=== PATIENT | male | born 1955 | race American Indian/Alaskan Native ===

== ENCOUNTER 2019-02-25 09:49 | Day surgery (SDC) | payer MEDICARE ==
[~2019-02-25 09:49] MED LIST: NACL 0.9% 1000 ML 1,000 ML IV SCH
[2019-02-25] MEDS ORDERED: D50W (25GM) Syringe IV ONE (11:07)
--- NOTE | 2019-02-25 12:29 | Anesthesia Day of Surgery ---
Anesthesia Day of Surgery - Day of Surgery Patient Examined: Yes Patient H&P Reviewed: Yes Patient is NPO: Yes
--- NOTE | 2019-02-25 12:32 | Anesthesia Consultation ---
Anesthesia Consult and Med Hx Date of service: 02/25/19 - Airway Anesthetic Teeth Evaluation: Good ROM Head & Neck: Adequate Mental/Hyoid Distance: Adequate Mallampati Class: Class III Intubation Access Assessment: Possibly Difficult - Pre-Operative Health Status ASA Pre-Surgery Classification: ASA3 Proposed Anesthetic Plan: MAC - Pulmonary Hx Pneumonia: Yes (viral) - Cardiovascular System Hx Hypertension: Yes - Endocrine Hx Renal Disease: Yes (MWF) Hx End Stage Renal Disease: Yes Hx Non-Insulin Dependent Diabetes: Yes (neuropathy)
[2019-02-25] MEDS ORDERED: DIPRIVAN 10 MG/ML IV ONE ×2 (13:21→13:22)
[2019-02-25] MEDS ORDERED: XYLOCAINE 2% UROJET ONE (13:56)
[2019-02-25] MEDS ORDERED: XYLOCAINE 2% UROJET UR ONE (14:00)
--- NOTE | 2019-02-25 14:10 | Operative Report ---
Operative Report Operative Report: Date of procedure: 02/25/2019 Procedure: Colonoscopy with hot biopsy polypectomy. Hemorrhoidal Band Ligation. Attending physician: Ruy Andersen MD Casualty Claim Adjuster: Ruy Andersen MD Indication: Patient is a 63-year-old male who presents for colonoscopy. He has a history of rectal bleeding and rectal pain. A colonoscopy serves to evaluate patients symptoms and also for directing treatment based on the findings. Consent: Informed consent was obtained after advising the patient and family (son)regarding nature of this procedure, its indications, potential benefits as well as possible complications including but not limited to bleeding perforation and adverse reaction to medication, infection, fecal incontinence, anorectal pain as well as other cardiopulmonary complications. An informed written and verbal consent was then obtained after due opportunity was provided for questions and answers. Monitoring: Patient was monitored continuously with pulse oximetry and electrocardiographic recordings as well as blood pressure recordings. Vital signs remained stable throughout this procedure with no untoward events. Preoperative assessment: Patient was assessed immediately prior to this procedure for capacity to tolerate monitored anesthesia care and moderate sedation as well as general anesthesia. Patient's ASA classification is 2, Mallampati class is 2, Hyomental distance is 3. Instrument: WriteOninon video colonoscope. Multiple band ligator: Speedband SuperView Super 7 (ABODO) Medications: Propofol given intravenously in divided doses. For details please refer to anesthesia records. Description of procedure: Patient was placed in the left lateral decubitus position after achieving sedation, a digital rectal examination was performed following which the colonoscope was introduced into the anal verge and advanced to the cecum which was identified by the cecal valve, the appendiceal orifice, as well as by the cecal strap and direct transillumination. The colonoscope was subsequently withdrawn with careful inspection of all mucosal surfaces. Patient tolerated this procedure well and was subsequently taken to the recovery room. The following findings were noted. Findings: Patient had a 6 mm flat polyp in the transverse colon which was removed by hot biopsy polypectomy. The rest of the colon to the cecum was normal, except for areas of retained liquid stool. The cecum had substantial retained stool. On the retroflex view at the anal verge, patient had prominent large friable internal hemorrhoids. After completing the colonoscopic examination, the WILEXn video endoscope was preloaded with the multiple band ligator. It was then reintroduced into the rectum after using lidocaine gel to numb the rectum. Following this, in a retroflexed view, multiple bands were applied over the internal hemorrhoids. In all, all 3 bands were applied due to size of internal hemorrhoids. All bands were applied above the dentate line. Patient tolerated the procedure well with no untoward events. Impression: Retained stool Transverse colon polyp status post hot biopsy polypectomy. Prominent friable Internal hemorrhoids, status post successful hemorrhoidal band ligation. Plan: Follow pathology report and repeat colonoscopy in 5 years if polyps are adenomatous. Daily sitz baths. High-fiber diet. Patient to apply lidocaine ointment 5% per rectum every 6 hours as needed. Anusol HC suppositories per rectum every night. Patient to use stool softeners as needed. Miralax 17 g in 8 ounce glass of water has been prescribed. Tramadol 50 mg every 6 hours as needed for pain. Patient is scheduled for further outpatient follow-up. Patients further instructed that if he developes persistent bleeding and or fevers to notify the office immediately.
--- NOTE | 2019-02-25 14:11 | Discharge Summary ---
Short Stay Discharge Plan Activity: advance as tolerated Weight Bearing Status: Weight Bear as Tolerated Diet: regular Follow up with: WILFREDO POPE MD [Primary Care Provider] - 7 Days
[2019-02-25 14:44] VITALS: BP 156/87
== END 2019-02-25 09:50 | disposition home or self-care (01) ==
LOC: GIO 09:49
PROVIDERS: ATTEND Internal Medicine Gastroenterology
DX: K63.5 Polyp of colon (principal); K64.8 Other hemorrhoids; K62.89 Other specified diseases of anus and rectum; I12.0 Hypertensive chronic kidney disease with stage 5 chronic kidney disease or end stage renal disease; E11.22 Type 2 diabetes mellitus with diabetic chronic kidney disease; N18.6 End stage renal disease; Z99.2 Dependence on renal dialysis; Z79.899 Other long term (current) drug therapy; Z98.890 Other specified postprocedural states
CPT/HCPCS: 45384; 45398; 82962; 88305; J2704; J7030; 96374

== ENCOUNTER 2019-03-07 21:25 | Inpatient (IN) | payer MEDICARE ==
--- NOTE | 2019-03-07 22:54 | Emergency Department Report ---
Chief Complaint: Chest Pain Stated Complaint: CHEST PAIN/CHILLS Time Seen by Provider: 03/07/19 22:51 - HPI History of Present Illness: pt presents SOB, sub fever, and generalized weakness that began yesterday denies cough substernal CP that began tonight at 8 PM on dialysis goes M/W/F, went on friday PMHx HTN non smoker non drinker no drug use - Exam Vital Signs: Vital Signs 03/07/19 21:43 Temperature 98.2 F Pulse Rate 89 Respiratory 18 Rate Blood Pressure 106/73 O2 Sat by Pulse 98 Oximetry MSE screening note: Focused history and physical exam performed. Due to findings the following was ordered: CP protocol ED Disposition for MSE Condition: Stable
[2019-03-07 23:32] LABS: Basophils % (Auto) 0.6 % (0.0-1.8); Eosinophils # (Auto) 0.1 K/mm3 (0.0-0.4); Eosinophils % (Auto) 1.9 % (0.0-4.3); Hematocrit 38.1 % (35.5-45.6); Hemoglobin 12.5 gm/dl (11.8-15.2); INR 1.1 (0.87-1.13); Lymphocytes # (Auto) 0.3 K/mm3 (1.2-5.4); Lymphocytes % (Auto) 4.7 % (13.4-35.0); Mean Corpuscular HGB Conc 33 % (32-34); Mean Corpuscular Volume 97 fl (84-94); Monocytes # (Auto) 0.3 K/mm3 (0.0-0.8); Monocytes % (Auto) 5.7 % (0.0-7.3); Platelet Count 175 K/mm3 (140-440); Red Blood Count 3.94 M/mm3 (3.65-5.03); Red Cell Distribution Width 16.7 % (13.2-15.2)
[2019-03-07 23:33] LABS: Partial Thromboplastin Time 40.7 Sec. (24.2-36.6)
[2019-03-07 23:48] LABS: Albumin 4.1 g/dL (3.9-5); Calcium 8.7 mg/dL (8.4-10.2)
[2019-03-08 00:07] LABS: Chol/HDL Ratio 2.59 %
[2019-03-08] MEDS ORDERED: CALCIUM GLUCONATE 1,000 MG in NACL 0.9% 100 ML IV ONE (00:35)
[2019-03-08] MEDS ORDERED: D50W (25GM) Syringe IV ONE ×3 (00:35→03:55)
[2019-03-08] MEDS ORDERED: HumuLIN R IV ONE (00:35)
[2019-03-08] MEDS ORDERED: KIONEX PO ONE (00:47)
--- NOTE | 2019-03-08 00:47 | Emergency Department Report ---
HPI - General Chief Complaint: Chest Pain Time Seen by Provider: 03/07/19 22:51 - HPI HPI: Room 6 The patient is a 63-year-old male presenting with a chief complaint of chest pain. The patient states this evening at approximately 20:00 began to feel weak and cold. The patient states he developed substernal chest pain associated with shortness of breath and diaphoresis. Patient denies nausea or vomiting. The patient has a history of end-stage renal disease and was last dialyzed 2 days ago. Patient states he had a stress test 2 years ago and he believes a normal cardiac catheterization approximately 4 years ago. Location: [See above] Duration: [See above] Quality: [See above] Severity: [See above] Modifying factors: [see above] Context: [see above] Mode of transportation: [not driving] ED Past Medical Hx - Past Medical History Previous Medical History?: Yes Hx Hypertension: Yes Hx Diabetes: Yes (diet controlled) Hx Renal Disease: Yes (MWF) Additional medical history: neuropathy - Surgical History Past Surgical History?: No Additional Surgical History: Vas-Cath left groin, colonic polyp removal. Right kidney biopsy - Social History Smoking Status: Never Smoker Substance Use Type: None (denies illicit drug use) - Medications Home Medications: Home Medications Medication Instructions Recorded Confirmed Last Taken Type Brimonidine Tartrate 0.2% 1 drop OU DAILY 02/24/19 02/25/19 02/24/19 History Doxazosin Mesylate 8 mg PO DAILY 02/24/19 02/25/19 02/24/19 History Hemorrhoidal Cream 1 applicatio RC BID PRN 02/24/19 02/25/19 02/23/19 History Latanoprost 0.005% 1 drop OU DAILY 02/24/19 02/25/19 02/24/19 History Loperamide 2 mg PO Q6H PRN 02/24/19 02/25/19 Unknown History Methocarbamol 500 mg PO DAILY 02/24/19 02/25/19 02/24/19 History Nephro-Manny Rx Tablet 60 - 300 mg PO DAILY 02/24/19 02/25/19 02/23/19 History Oxycodone HCl 15 mg PO PRN PRN 02/24/19 02/25/19 02/23/19 History Renvela 800 mg PO DAILY 05/11/1402/25/19 02/23/19 History ED Review of Systems ROS: Stated complaint: CHEST PAIN/CHILLS Other details as noted in HPI Constitutional: diaphoresis Eyes: denies: eye pain ENT: denies: throat pain Respiratory: shortness of breath Cardiovascular: chest pain Endocrine: no symptoms reported Gastrointestinal: denies: nausea, vomiting Genitourinary: denies: testicular pain Musculoskeletal: denies: back pain Neurological: denies: headache Physical Exam - Physical Exam Vital Signs: Vital Signs 03/07/19 21:43 Temperature 98.2 F Pulse Rate 89 Respiratory 18 Rate Blood Pressure 106/73 O2 Sat by Pulse 98 Oximetry Physical Exam: GENERAL: The patient is well-developed well-nourished male lying on stretcher not appearing to be in acute distress. [] HEENT: Normocephalic. Atraumatic. Extraocular motions are intact. Patient has moist mucous membranes. NECK: Supple. Trachea midline CHEST/LUNGS: Clear to auscultation. There is no respiratory distress noted. HEART/CARDIOVASCULAR: Regular. There is no tachycardia. There is no gallop rub or murmur. ABDOMEN: Abdomen is soft, nontender. Patient has normal bowel sounds. There is no abdominal distention. SKIN: There is no rash. There is no diaphoresis. NEURO: The patient is awake, alert, and oriented. The patient is cooperative. The patient has normal speech MUSCULOSKELETAL: There is no evidence of acute injury. ED Course Vital Signs 03/07/19 21:43 Temperature 98.2 F Pulse Rate 89 Respiratory 18 Rate Blood Pressure 106/73 O2 Sat by Pulse 98 Oximetry - Consultations Consultation #1: 03/08/19 00:[address] Cadena- Says patient should also get albuterol and Kayexalate 60 g and have potassium repeated in 4 hours. If Potassium still greater than 5.8 call him back tonight. Consultation #2: 03/07/19 21:49 EKG sent to and discussed with electric truck operator Dr. Eros Burgos- no STEMI ED Medical Decision Making - Lab Data Result diagrams: 03/07/19 23:05 03/07/19 23:05 Laboratory Tests 03/07/19 03/07/19 03/07/19 23:05 23:05 23:05 WBC 5.9 RBC 3.94 Hgb 12.5 Hct 38.1 MCV 97 H MCH 32 MCHC 33 RDW 16.7 H Plt Count 175 Lymph % (Auto) 4.7 L [place] % (Auto) 5.7 Eos % (Auto) 1.9 Baso % (Auto) 0.6 Lymph # 0.3 L [place] # 0.3 Eos # 0.1 Baso # 0.0 Seg Neutrophils % 87.1 H Seg Neutrophils # 5.2 PT 14.9 INR 1.10 APTT 40.7 H Sodium 136 L Potassium 6.0 H Chloride 97.1 L Carbon Dioxide 22 Anion Gap 23 BUN 56 H Creatinine 12.3 H Estimated GFR 5 BUN/Creatinine Ratio 5 Glucose 64 L Calcium 8.7 Phosphorus 3.40 Magnesium 2.40 H Total Bilirubin 0.40 AST 18 ALT 15 Alkaline Phosphatase 64 Troponin T 0.071 H Total Protein 7.2 Albumin 4.1 Albumin/Globulin Ratio 1.3 Triglycerides 77 Cholesterol 140 LDL Cholesterol Direct 78 HDL Cholesterol 54 Cholesterol/HDL Ratio 2.59 - EKG Data -: EKG Interpreted by Me EKG shows normal: sinus rhythm Rate: normal - EKG Data When compared to previous EKG there are: previous EKG unavailable Interpretation: nonspecific ST-T wave maureen - Radiology Data Radiology results: report reviewed (chest x-ray), image reviewed (chest x-ray) interpreted by me: Chest x-ray-no focal infiltrates, [place] [address] Cat Scan Report Signed Patient: RON DIAS MR# : [id number] : 01/28/1979 Acct:[id number] Age/Sex: 40 / F ADM Date: 03/07/19 Loc: ED Attending Dr: Ordering Physician: RAJNI BYRNES MD Date of Service: 03/07/19 Procedure(s): CT abdomen pelvis w con Accession Number(s): [id number] cc: RAJNI BYRNES MD PROCEDURE: CT ABDOMEN PELVIS W CON TECHNIQUE: Computerized axial tomography of the abdomen and pelvis was performed after the IV injection of iodinated nonionic contrast. HISTORY: lower abdominal pain COMPARISONS: None . FINDINGS: Visualized lower thorax: No significant abnormality. Liver: Normal size and attenuation. Spleen: Normal size and attenuation. Gallbladder and biliary system: Multiple stones identified within the gallbladder lumen. No dilatation of the biliary ductal system. Pancreas: Normal. Adrenals: Normal. Kidneys: Normal. GI tract: No obstruction. No ileus or enteritis. The cecum, appendix and colon are normal. . Lymph nodes and mesentery: Normal. Vasculature: Normal.. Bladder: Normal. Reproductive organs: Normal. Peritoneum: No free fluid. Musculoskeletal structures: No significant abnormality. Other: None . IMPRESSION: There is no evidence of intestinal or urinary tract obstruction. No ileus or enteritis. The appendix is normal. Cholelithiasis. No dilatation of the biliary ductal system. . This document is electronically signed by Izabela Cassidy DO., Mar 08 2019 12:15:22 AM ET Transcribed By: [facility] Dictated By: IZABELA CASSIDY MD Electronically Authenticated By: IZABELA CASSIDY MD Signed Date/Time: 03/08/1916 DD/ TD/TT: 03/08/196 - Differential Diagnosis ACS, pericarditis, GERD, hyperkalemia Critical care attestation.: If time is entered above; I have spent that time in minutes in the direct care of this critically ill patient, excluding procedure time. ED Disposition Clinical Impression: Chest pain, Hyperkalemia, End stage renal disease Disposition: OP ADMIT IP TO THIS HOSP Is pt being admited?: Yes Does the pt Need Aspirin: Yes Condition: Fair Instructions: Chest Pain (ED) Referrals: MIN CAZARES MD [Primary Care Provider] - 3-5 Days Time of Disposition: 01:01 (hospitalist notified (Dr Diamond))
[2019-03-08] MEDS ORDERED: PROVENTIL IH ONE (00:48)
[2019-03-08] MEDS ORDERED: NITRO-BID 2% TP ONE (00:48)
[2019-03-08] MEDS ORDERED: ASPIRIN PO ONE (00:48)
--- NOTE | 2019-03-08 00:49 | Event Note ---
Case d/w Dr Flores , mild hyperkalemia no EKG cahnges per E MD PER MD no resp distress No emergent indications for HD Had HD friday Suggested D 50 insulin Calcium 1 gram IV Bicarb 2 amp Albuterol 10 mg nebulized Kayexalate 60 gram po Repeat potassium in 4 hours if over 5.8 to call me
--- NOTE | 2019-03-08 01:48 | XRay Report ---
PROCEDURE: XR CHEST 1V AP TECHNIQUE: Chest radiograph single view. HISTORY: chest pain COMPARISONS: None . FINDINGS: Heart: Normal. Mediastinum/Vessels: Normal. Lungs/Pleural space: Normal. Bony thorax: No acute osseous abnormality. Life support devices: None. IMPRESSION: No acute cardiopulmonary abnormality. This document is electronically signed by Izabela Cassidy DO., Mar 08 2019 01:46:55 AM ET
[2019-03-08] MEDS ORDERED: MORPHINE IV PRN (02:00)
[2019-03-08] MEDS ORDERED: NITROSTAT SL PRN (02:00)
[2019-03-08] MEDS ORDERED: TYLENOL PO PRN (02:01)
[2019-03-08] MEDS ORDERED: ZOFRAN IV PRN (02:01)
--- NOTE | 2019-03-08 04:46 | History and Physical Report ---
CHIEF COMPLAINT: Chest pain. HISTORY OF PRESENTING ILLNESS: The patient is a 63-year-old male who started having substernal chest pain yesterday evening. The patient said initially he started feeling weak and cold and then developed substernal chest pain which was associated with shortness of breath and diaphoresis. There was no history of nausea or vomiting and also the patient did not have any radiation of the pain and said that the pain is not affected by movement or breathing and presented for evaluation. PAST MEDICAL HISTORY: Pertinent for hypertension; diabetes mellitus, controlled with diet; end-stage renal disease, on dialysis on Mondays, Wednesdays, and Fridays; and diabetic neuropathy. PAST SURGICAL HISTORY: Pertinent for vascath placement in the left groin, colonic polyp removal, right kidney biopsy. FAMILY HISTORY: Noncontributory. SOCIAL HISTORY: The patient does not smoke, does not drink alcohol, and does not use illicit drugs. MEDICATIONS: The patient is on brimonidine tartrate 0.2% one drop to the right eye daily, doxazosin mesylate 8 mg by mouth daily, hemorrhoidal cream application rectally twice daily, latanoprost 0.005% one drop to right eye daily, loperamide 2 mg by mouth every 6 hours, methocarbamol 500 mg by mouth daily, Nephro-Manny tablet ____ by mouth daily, oxycodone 15 mg by mouth by needed for pain, Renvela 800 mg by mouth daily. ALLERGIES: There are no known drug allergies. REVIEW OF SYSTEMS: CONSTITUTIONAL: There is no fever, no chills. Diaphoresis is present. HEENT: There is no headache or sore throat. CARDIOVASCULAR SYSTEM: Chest pain is present. No orthopnea. RESPIRATORY SYSTEM: Shortness of breath is present. No cough. GASTROINTESTINAL SYSTEM: There is no nausea, no vomiting. No abdominal pain, diarrhea, or constipation. NEUROLOGICAL SYSTEM: There is no numbness, no dizziness, no altered mental status. MUSCULOSKELETAL SYSTEM: There is no joint pain or swelling. DERMATOLOGICAL SYSTEM: There is no skin rash or itching. GENITOURINARY SYSTEM: There is no dysuria, hematuria, or flank pain. Rest of system review is normal. PHYSICAL EXAMINATION: GENERAL: At the time of exam, the patient was found to be alert, oriented x 3, and not in acute distress. VITAL SIGNS: Showed temperature of 98.2 degrees Fahrenheit, pulse of 89, respirations 18, blood pressure 106/73, O2 sat of 98% on room air. HEENT: Pupils to be equal, round, reactive to light and accommodating. Extraocular muscles are intact. NECK: Supple with no JVD or carotid bruit. CARDIOVASCULAR SYSTEM: Showed normal first and second heart sounds with no gallops or murmur. RESPIRATORY SYSTEM: Showed good air entry on both sides of the lungs with no abnormal breath sounds. GASTROINTESTINAL SYSTEM: Showed abdomen to be full, soft, nontender with no organomegaly or rigidity. NEUROLOGIC: Showed no focal deficit. MUSCULOSKELETAL SYSTEM: Showed no joint swelling or tenderness. DERMATOLOGICAL SYSTEM: Showed no skin rash. GENITOURINARY SYSTEM: Showing no costovertebral angle tenderness. PERTINENT LABORATORY AND IMAGING STUDIES: The patient had chest x-ray done that came back unremarkable. The patient's lab results show CBC with normal white count, normal hemoglobin, and normal hematocrit with slightly elevated MCV of 97. The patient's CBC differential shows high segmented neutrophil count of 87.1%. Coagulation studies show elevated PTT of 40.7 with normal PT and normal INR. The patient's chemistry showed low sodium of 136 with high potassium level of 6 and low chloride level of 97.1. The patient's BUN is elevated with a value of 56 with high creatinine of 12.3 and low glucose level of 64. The patient's troponin level is high with a value of 0.071. DIAGNOSES: 1. Chest pain. 2. End-stage renal disease, on dialysis. 3. Hyperkalemia. 4. Elevated troponin level. PLAN OF CARE: 1. The patient will be admitted to telemetry as inpatient. 2. The patient will have serial cardiac enzymes involving troponin, total CK and CK-MB check every 6 hours x 2 more levels. 3. The patient will continue Nephrology consult with Dr. Cadena for end-stage renal disease and hyperkalemia. 4. The patient will have Cardiology consult with Dr. Yun because of chest pain and elevated troponin level. 5. The patient will be n.p.o. until seen by the production supply equipment tender. 6. The patient will be on aspirin 325 mg by mouth daily and will be on IV morphine 2 mg every 3 hours as needed for pain. 7. The patient will be on nitro paste half inch to anterior chest wall q.i.d. and will be on sublingual nitroglycerin 0.4 mg every 5 minutes as needed for breakthrough chest pain. 8. The patient will be on IV Zofran 4 mg every 8 hours as needed for nausea and vomiting and will be on Tylenol 650 mg by mouth every 4 hours for fever and headache. 9. The patient will be on oxygen by nasal cannula at 2 liters per minute. JOB# [id number] OCN/NTS
[2019-03-08] MEDS: NITRO-BID 2% TP SCH ×5 (05:57→18:15)
[2019-03-08 06:40] LABS: Creatine Kinase MB 3.4 ng/mL (0.0-4.0)
[2019-03-08 06:42] LABS: Calcium 8.7 mg/dL (8.4-10.2)
--- NOTE | 2019-03-08 08:36 | Progress Note ---
Assessment and Plan Assessment and plan: Patient is a 63 yo man with history of ESRD on hd, hypertension, diet controlled dm2 and neuropathy who presented with chest pains Chest pains: consulted cardiology ESRD: consulted renal Hyperkalemia: needing HD prolonged inpatient services 31 minutes History Interval history: Patient was seen and examined. Follow-up on current diagnosis of chest pains. No overnight events reported to me. Patient denies any shortness breath, nausea/vomiting or severe headaches. Imaging, nursing note, chart, labs and old chart reviewed. Discussed with patient. Hospitalist Physical - Physical exam Narrative exam: Gen: WDWN, NAD, Awake, Alert, Orientated HEENT: NCAT, EOMI, PERRL, OP Clear Neck: supple, no adenopathy, no thyromegaly, no JVD CVS/Heart: RRR, normal S1S2, pulses present bilaterally Chest/Lungs: CTA B, Symmetrical chest expansion, good air entry bilaterally GI/Abdomen: soft, NTND, good bowel sounds, no guarding or rebound /Bladder: no suprapubic tenderness, no CVA or paraspinal tenderness Extermity/Skin: no c/c/e, no obvious rash MSK: FROM x 4 Neuro: CN 2-12 grossly intact, no new focal deficits Psych: calm - Constitutional Vitals: Temp Pulse Resp BP Pulse Ox 98.0 F 104 H 20 186/113 91 03/08/19 08:31 03/08/19 08:31 03/08/19 08:31 03/08/19 08:31 03/08/19 08:31 Results - Labs CBC & Chem 7: 03/07/19 23:05 03/08/19 04:48 Labs: Laboratory Last Values WBC 5.9 K/mm3 (4.5-11.0) 03/07/19 23:05 RBC 3.94 M/mm3 (3.65-5.03) 03/07/19 23:05 Hgb 12.5 gm/dl (11.8-15.2) 03/07/19 23:05 Hct 38.1 % (35.5-45.6) 03/07/19 23:05 MCV 97 fl (84-94) H 03/07/19 23:05 MCH 32 pg (28-32) 03/07/19 23:05 MCHC 33 % (32-34) 03/07/19 23:05 RDW 16.7 % (13.2-15.2) H 03/07/19 23:05 Plt Count 175 K/mm3 (140-440) 03/07/19 23:05 Lymph % (Auto) 4.7 % (13.4-35.0) L 03/07/19 23:05 [place] % (Auto) 5.7 % (0.0-7.3) 03/07/19 23:05 Eos % (Auto) 1.9 % (0.0-4.3) 03/07/19 23:05 Baso % (Auto) 0.6 % (0.0-1.8) 03/07/19 23:05 Lymph # 0.3 K/mm3 (1.2-5.4) L 03/07/19 23:05 [place] # 0.3 K/mm3 (0.0-0.8) 03/07/19 23:05 Eos # 0.1 K/mm3 (0.0-0.4) 03/07/19 23:05 Baso # 0.0 K/mm3 (0.0-0.1) 03/07/19 23:05 Seg Neutrophils % 87.1 % (40.0-70.0) H 03/07/19 23:05 Seg Neutrophils # 5.2 K/mm3 (1.8-7.7) 03/07/19 23:05 PT 14.9 Sec. (12.2-14.9) 03/07/19 23:05 INR 1.10 (0.87-1.13) 03/07/19 23:05 APTT 40.7 Sec. (24.2-36.6) H 03/07/19 23:05 Sodium 137 mmol/L (137-145) 03/08/19 04:48 Potassium 5.2 mmol/L (3.6-5.0) H 03/08/19 04:48 Chloride 96.0 mmol/L (98-107) L 03/08/19 04:48 Carbon Dioxide 22 mmol/L (22-30) 03/08/19 04:48 24 mmol/L 03/08/19 04:48 BUN 58 mg/dL (9-20) H 03/08/19 04:48 12.7 mg/dL (0.8-1.5) H 03/08/19 04:48 Estimated GFR 5 ml/min 03/08/19 04:48 5 % 03/08/19 04:48 Glucose 69 mg/dL (75-100) L 03/08/19 04:48 POC Glucose 71 (70-105) 03/08/19 08:31 Calcium 8.7 mg/dL (8.4-10.2) 03/08/19 04:48 Phosphorus 3.40 mg/dL (2.5-4.5) 03/07/19 23:05 Magnesium 2.40 mg/dL (1.7-2.3) H 03/07/19 23:05 0.40 mg/dL (0.1-1.2) 03/07/19 23:05 AST 18 units/L (5-40) 03/07/19 23:05 ALT 15 units/L (7-56) 03/07/19 23:05 64 units/L (35-129) 03/07/19 23:05 174 units/L (55-170) H 03/08/19 04:48 CK-MB (CK-2) 3.4 ng/mL (0.0-4.0) 03/08/19 04:48 CK-MB (CK-2) Rel Index 1.9 (0-4) 03/08/19 04:48 0.069 ng/mL (0.00-0.029) H 03/08/19 04:48 7.2 g/dL (6.3-8.2) 03/07/19 23:05 4.1 g/dL (3.9-5) 03/07/19 23:05 1.3 % 03/07/19 23:05 Triglycerides 77 mg/dL (2-149) 03/07/19 23:05 Cholesterol 140 mg/dL (50-199) 03/07/19 23:05 78 mg/dL (50-130) 03/07/19 23:05 54 mg/dL (40-59) 03/07/19 23:05 2.59 % 03/07/19 23:05 Active Medications - Current Medications Current Medications: Generic Name Dose Route Start Last Admin Trade Name Carlo PRN Reason Stop Dose Admin Acetaminophen 650 mg 03/08/19 02:01 Tylenol PO Q4H PRN Headache Aspirin 325 mg 03/08/19 10:00 Aspirin PO QDAY [facility] Heparin Sodium (Porcine) 5,000 unit 03/08/19 10:00 Heparin SUB-Q Q12HR [facility] Morphine Sulfate 2 mg 03/08/19 02:00 03/08/19 05:47 Morphine IV 2 mg Q3H PRN Administration Pain, Moderate (4-6) Nitroglycerin 0.5 inch 03/08/19 06:00 03/08/19 05:59 Nitro-Bid 2% TP Not Given QIDNTG [facility] Protocol Nitroglycerin 0.4 mg 03/08/19 02:00 Nitrostat SL .Q5MIN PRN Chest Pain Ondansetron HCl 4 mg 03/08/19 02:01 Zofran IV Q8H PRN Nausea And Vomiting
--- NOTE | 2019-03-08 09:17 | Consultation ---
History of Present Illness - History of Present Illness Thank you for the consultation ! Patient was evaluated today My assessment and plan are as follows; End-stage renal disease: Patient is currently on hemodialysis, and will need to continue with hemodialysis on Friday and Friday, scheduled current dialysis access is a femoral catheter Given his BMI he will need a 4 hour dialysis treatment Patient was adequately counseled and educated about dialysis process Chest pain currently undergoing workup Anemia and end-stage renal disease: Monitor hemoglobin and hematocrit erythropoietin as needed. Workup as required Secondary hyperparathyroidism: Check phosphorus and PTH level periodically, binders as needed Dialysis access: Currently working well Malnutrition risk: High consider high-protein diet dietitian evaluation and follow-up in general 1.5 g protein per KG body weight Fluid restriction: 1200 cc per day not to exceed more than that Adequately counseled and educated about other hospital related issues as well Labs were discussed with patient and simple [place] Patient does appear to have good understanding of all the dialysis related issues Patient was adequately counseled and educated regarding multiple renal related issues. case was also discussed with his review manager Dr. Wilkins All renal related questions were answered and simple [place] pertinent lab studies as well as imaging results were also discussed with patient We will continue to follow and make recommendations from renal standpoint. Thank you for the consultation Author: Jermaine Cadena M.D. [facility] (Formerly [facility])[3] Nephrology, [address] [place] [address] Tel; [phone] Source of information: From patient History of present illness Patient is 63-year-old -Armenian male who is currently established with Dr. Wilkins, for hemodialysis and is currently in Friday schedule. Patient only dialyzes for about 3 hour 45 minutes, he has been admitted here with chest pain and has had mild hyperkalemia last night which was treated medically, patient is currently chest pain-free and is being followed by cardiology He is currently feeling much better denies having any chest pain His access has been working well for dialysis, which is a femoral catheter currently He has no complaints of any cough cold congestion fevers chills nausea vomiting diarrhea Past medical history significant for End-stage renal disease Anemia and incisional disease Hypertension Secondary hyperparathyroidism Diabetes Neuropathy Current allergies None Social history: Reviewed from the chart Family history reviewed from the chart Current medication or medication reviewed Review of systems positive for chest pain Unremarkable for all other systems Cardiac catheterization has had 4 years ago Physical examination Vitals: Reviewed General: No acute distress HEENT: Oral mucosa moist no pallor or icterus Neck: Supple without any JVD thyromegaly or nodular mass Chest: Clear to auscultation Heart: Regular rate and rhythm S1-S2 heard no S3-S4 Abdomen: Soft nontender, bowel sounds present no renal bruit no suprapubic masses no CVA tenderness noted Extremity: Minimal edema dry skin no peripheral cyanosis femoral catheter site unremarkable Endocrine: Thyroid not enlarged Psychiatric: No agitation and aggression noted Musculoskeletal: No joint effusion noted Labs and x-rays: Reviewed from this admission Medications and Allergies Allergies Allergy/AdvReac Type Severity Reaction Status Date / Time No Known Allergies Allergy Verified 02/24/19 14:44 Home Medications Medication Instructions Recorded Confirmed Last Taken Type Brimonidine Tartrate 0.2% 1 drop OU DAILY 02/24/19 03/08/19 02/24/19 History Doxazosin Mesylate 8 mg PO DAILY 02/24/19 03/08/19 03/07/19 History Hemorrhoidal Cream 1 applicatio RC BID PRN 02/24/19 03/08/19 02/23/19 History Latanoprost 0.005% 1 drop OU DAILY 02/24/19 03/08/19 03/07/19 History Loperamide 2 mg PO Q6H PRN 02/24/19 03/08/19 Unknown History Methocarbamol 500 mg PO DAILY 02/24/19 03/08/19 03/07/19 History Nephro-Manny Rx Tablet 60 - 300 mg PO DAILY 02/24/19 03/08/19 03/07/19 History Oxycodone HCl 15 mg PO PRN PRN 02/24/19 03/08/19 02/23/19 History Renvela 800 mg PO DAILY 02/24/19 03/08/19 03/07/19 History Active Meds: Active Medications Acetaminophen (Tylenol) 650 mg PO Q4H PRN PRN Reason: Headache Aspirin (Aspirin) 325 mg PO QDAY ERIC Heparin Sodium (Porcine) (Heparin) 5,000 unit SUB-Q Q12HR ERIC Morphine Sulfate (Morphine) 2 mg IV Q3H PRN PRN Reason: Pain, Moderate (4-6) Last Admin: 03/08/19 05:47 Dose: 2 mg Documented by: Nitroglycerin (Nitro-Bid 2%) 0.5 inch TP [facility]IDNTG [facility]; Protocol Last Admin: 03/08/19 05:59 Dose: Not Given Documented by: Nitroglycerin (Nitrostat) 0.4 mg SL .Q5MIN PRN PRN Reason: Chest Pain Ondansetron HCl (Zofran) 4 mg IV Q8H PRN PRN Reason: Nausea And Vomiting Exam - Vital Signs Vital signs: Vital Signs Temp Pulse Resp BP Pulse Ox 98.2 F 89 18 106/73 98 03/07/19 21:43 03/07/19 21:43 03/07/19 21:43 03/07/19 21:43 03/07/19 21:43 Results - Lab Results 03/07/19 23:05 03/08/19 04:48 Most recent lab results Calcium 8.7 mg/dL (8.4-10.2) 03/08/19 04:48 Phosphorus 3.40 mg/dL (2.5-4.5) 03/07/19 23:05 Magnesium 2.40 mg/dL (1.7-2.3) H 03/07/19 23:05
[2019-03-08] MEDS ORDERED: NACL 0.9% 100 ML IV PRN (09:30)
--- NOTE | 2019-03-08 11:32 | Consultation ---
History of Present Illness Consult date: 03/08/19 Consult reason: chest pain History of present illness: Patient is a 63 year old male with end stage renal disease on dialysis. He has a history of nonischemic cardiomyopathy by cardiac cath in 2011 that reports normal coronaries but a decreased ejection fraction of 35%. His latest echocardiogram done a year ago shows a resolving cardiomyopathy with an improved ejection fraction 55-60%. Patient presents to this hospital with complaints of chest pain thus this cardiac consultation. Cycled troponin are mildly elevated, likely secondary to renal disease. He has a normal CK and relative index. Chest x-ray is negative and his ECG is benign, normal sinus rhythm. Medications and Allergies Allergies Allergy/AdvReac Type Severity Reaction Status Date / Time No Known Allergies Allergy Verified 02/24/19 14:44 Home Medications Medication Instructions Recorded Confirmed Last Taken Type Brimonidine Tartrate 0.2% 1 drop OU DAILY 02/24/19 03/08/19 02/24/19 History Doxazosin Mesylate 8 mg PO DAILY 02/24/19 03/08/19 03/07/19 History Hemorrhoidal Cream 1 applicatio RC BID PRN 02/24/19 03/08/19 02/23/19 History Latanoprost 0.005% 1 drop OU DAILY 02/24/19 03/08/19 03/07/19 History Loperamide 2 mg PO Q6H PRN 02/24/19 03/08/19 Unknown History Methocarbamol 500 mg PO DAILY 02/24/19 03/08/19 03/07/19 History Nephro-Manny Rx Tablet 60 - 300 mg PO DAILY 02/24/19 03/08/19 03/07/19 History Oxycodone HCl 15 mg PO PRN PRN 02/24/19 03/08/19 02/23/19 History Renvela 800 mg PO DAILY 02/24/19 03/08/19 03/07/19 History Active Meds: Active Medications Acetaminophen (Tylenol) 650 mg PO Q4H PRN PRN Reason: Headache Aspirin (Aspirin) 325 mg PO QDAY ERIC Heparin Sodium (Porcine) (Heparin) 5,000 unit SUB-Q Q12HR ERIC Sodium Chloride (Nacl 0.9%) 100 mls @ 999 mls/hr IV ELMA PRN PRN Reason: Hypotension Morphine Sulfate (Morphine) 2 mg IV Q3H PRN PRN Reason: Pain, Moderate (4-6) Last Admin: 03/08/19 05:47 Dose: 2 mg Documented by: Nitroglycerin (Nitro-Bid 2%) 0.5 inch TP QIDNTG [facility]; Protocol Last Admin: 03/08/19 05:59 Dose: Not Given Documented by: Nitroglycerin (Nitrostat) 0.4 mg SL .Q5MIN PRN PRN Reason: Chest Pain Ondansetron HCl (Zofran) 4 mg IV Q8H PRN PRN Reason: Nausea And Vomiting Physical Examination Vital Signs Temp Pulse Resp BP Pulse Ox 98.2 F 89 18 106/73 98 03/07/19 21:43 03/07/19 21:43 03/07/19 21:43 03/07/19 21:43 03/07/19 21:43 General appearance: no acute distress HEENT: Positive: PERRL Cardiac: Positive: Reg Rate and Rhythm Lungs: Positive: Decreased Breath Sounds Neuro: Positive: Grossly Intact Results 03/07/19 23:05 03/08/19 04:48 Cardiac Enzymes 03/07/19 03/08/19 Range/Units 23:05 04:48 AST 18 (5-40) units/L CK-MB (CK-2) 3.4 (0.0-4.0) ng/mL Coagulation 03/07/19 Range/Units 23:05 PT 14.9 (12.2-14.9) Sec. INR 1.10 (0.87-1.13) APTT 40.7 H (24.2-36.6) Sec. Lipids 03/07/19 Range/Units 23:05 Triglycerides 77 (2-149) mg/dL Cholesterol 140 (50-199) mg/dL HDL Cholesterol 54 (40-59) mg/dL Cholesterol/HDL Ratio 2.59 % CBC 03/07/19 Range/Units 23:05 WBC 5.9 (4.5-11.0) K/mm3 RBC 3.94 (3.65-5.03) M/mm3 Hgb 12.5 (11.8-15.2) gm/dl Hct 38.1 (35.5-45.6) % Plt Count 175 (140-440) K/mm3 Lymph # 0.3 L (1.2-5.4) K/mm3 [place] # 0.3 (0.0-0.8) K/mm3 Eos # 0.1 (0.0-0.4) K/mm3 Baso # 0.0 (0.0-0.1) K/mm3 Comprehensive Metabolic Panel 03/07/19 03/08/19 Range/Units 23:05 04:48 Sodium 136 L 137 (137-145) mmol/L Potassium 6.0 H 5.2 H (3.6-5.0) mmol/L Chloride 97.1 L 96.0 L (98-107) mmol/L Carbon Dioxide 22 22 (22-30) mmol/L BUN 56 H 58 H (9-20) mg/dL Creatinine 12.3 H 12.7 H (0.8-1.5) mg/dL Glucose 64 L 69 L (75-100) mg/dL Calcium 8.7 8.7 (8.4-10.2) mg/dL AST 18 (5-40) units/L ALT 15 (7-56) units/L Alkaline Phosphatase 64 (35-129) units/L Total Protein 7.2 (6.3-8.2) g/dL Albumin 4.1 (3.9-5) g/dL Assessment and Plan Chest pain Mild elevated troponin likely secondary to renal disease ESRD on dialysis Hypertension Hx of NICMP, resolving LHC 2011: normal coronaries, EF 35%. Echo 2018: normal LVEF 55-60%. Recommendations: We will repeat an echocardiogram for LVEF reassessment. Pre-discharge persantine thallium stress test.
[2019-03-08] MEDS ORDERED: NACL 0.9 (PRIMING MACHINE ONLY DIALYSIS) MC ONE (13:13)
[2019-03-08 14:14] LABS: Creatine Kinase MB 2.4 ng/mL (0.0-4.0)
[2019-03-08] MEDS: HEPARIN SUB-Q SCH ×2 (16:15→21:55)
[2019-03-08] MEDS: ASPIRIN PO SCH (17:32)
[2019-03-08 19:36] LABS: Hepatitis B Surface Antigen Non-Reactive (Negative); Hepatitis C Virus Antibody Non-Reactive (NonReactive)
[2019-03-09] MEDS: NITRO-BID 2% TP SCH ×3 (05:31→15:30)
--- NOTE | 2019-03-09 09:20 | Progress Note ---
Subjective Date of service: 03/09/19 Objective - Vital Signs Vital signs: Vital Signs - 12hr 03/08/19 03/09/19 03/09/19 23:34 04:05 08:09 Temperature 98.4 F 98.9 F 99.3 F Pulse Rate 83 87 95 H Respiratory 18 18 16 Rate Blood Pressure 148/86 156/86 127/78 O2 Sat by Pulse 97 100 93 Oximetry - Lab 03/07/19 23:05 03/08/19 04:48 Most recent lab results Calcium 8.7 mg/dL (8.4-10.2) 03/08/19 04:48 Phosphorus 3.40 mg/dL (2.5-4.5) 03/07/19 23:05 Magnesium 2.40 mg/dL (1.7-2.3) H 03/07/19 23:05 Medications & Allergies - Medications Allergies/Adverse Reactions: Allergies No Known Allergies Allergy (Verified 02/24/19 14:44) Home Medications: Home Medications Medication Instructions Recorded Confirmed Last Taken Type Brimonidine Tartrate 0.2% 1 drop OU DAILY 02/24/19 03/08/19 02/24/19 History Doxazosin Mesylate 8 mg PO DAILY 02/24/19 03/08/19 03/07/19 History Hemorrhoidal Cream 1 applicatio RC BID PRN 02/24/19 03/08/19 02/23/19 History Latanoprost 0.005% 1 drop OU DAILY 02/24/19 03/08/19 03/07/19 History Loperamide 2 mg PO Q6H PRN 02/24/19 03/08/19 Unknown History Methocarbamol 500 mg PO DAILY 02/24/19 03/08/19 03/07/19 History Nephro-Manny Rx Tablet 60 - 300 mg PO DAILY 02/24/19 03/08/19 03/07/19 History Oxycodone HCl 15 mg PO PRN PRN 02/24/19 03/08/19 02/23/19 History Renvela 800 mg PO DAILY 02/24/19 03/08/19 03/07/19 History Active Medications: Generic Name Dose Route Start Last Admin Trade Name Freq PRN Reason Stop Dose Admin Acetaminophen 650 mg 03/08/19 02:01 03/08/19 13:12 Tylenol PO 650 mg Q4H PRN Administration Headache Aspirin 325 mg 03/08/19 10:00 03/08/19 17:32 Aspirin PO 325 mg QDAY ERIC Administration Heparin Sodium (Porcine) 5,000 unit 03/08/19 10:00 03/08/19 21:55 Heparin SUB-Q Not Given Q12HR [facility] Sodium Chloride 100 mls @ 999 mls/hr 03/08/19 09:30 Nacl 0.9% IV ELMA PRN Hypotension Morphine Sulfate 2 mg 03/08/19 02:00 03/08/19 05:47 Morphine IV 2 mg Q3H PRN Administration Pain, Moderate (4-6) Nitroglycerin 0.5 inch 03/08/19 06:00 03/09/19 05:31 Nitro-Bid 2% TP Not Given QIDNTG [facility] Protocol Nitroglycerin 0.4 mg 03/08/19 02:00 Nitrostat SL .Q5MIN PRN Chest Pain Ondansetron HCl 4 mg 03/08/19 02:01 Zofran IV Q8H PRN Nausea And Vomiting
[2019-03-09] MEDS ORDERED: LEXISCAN IV ONE ×2 (10:21→10:22)
--- NOTE | 2019-03-09 12:34 | Event Note ---
Date: 03/09/19 Patient underwent Lexiscan thallium stress test, results are pending.
--- NOTE | 2019-03-09 13:21 | Discharge Summary ---
Providers - Providers Date of Admission: 03/08/19 01:54 Date of discharge: 03/09/19 Attending physician: WILFRIDO CHASE 03/08/19 00:51 Consult to Physician [CONS] Urgent Comment: Dr. Flores spoke with Dr. Cadena @ 0044 Consulting Provider: ELIESER CADENA Physician Instructions: Reason For Exam: hyperkalemia 03/08/19 06:00 Consult to Physician [CONS] Routine Comment: Consulting Provider: ALISA MURRAY Physician Instructions: Reason For Exam: CHEST PAIN [facility] Condition: Fair Pertinent studies: Chest x-ray Thallium stress test 2-D echo Hospital course: 63-year-old man with end-stage renal disease on hemodialysis, h/o nonischemic cardiomyopathy with ejection fraction 35% on 2011 but then LVEF improved to 55- 60% on 2018 presented with atypical chest pain, which he localizes to his epigastric area. There was no exertional component, and no associated symptoms. EKG is a sinus rhythm with early repolarization changes, no acute ST or T-wave abnormalities. Echocardiogram for follow-up of his nonischemic cardiomyopathy this admissio showed preserved EF, A Lexiscan thallium stress test was normal. Cardiology recommended medical management. He was started on PPI for possible GERD, then he was discharged home with outpt followup in stable condition. Discharge diagnosis: Chest pain, atypical, likely GERD, s/p stress test Mild elevated troponin, likely secondary to renal disease ESRD on dialysis Hypertension Hx of NICMP, resolving - C 2011: normal coronaries, EF 35%. - Echo 2018: normal LVEF 55-60%. Disposition: TO HOME OR SELFCARE Core Measure Documentation - Palliative Care Palliative Care/ Comfort Measures: Not Applicable - Core Measures Any of the following diagnoses?: none Exam - Physical Exam Narrative exam: Gen: WDWN, NAD, Awake, Alert, Orientated HEENT: NCAT, EOMI, PERRL, OP Clear Neck: supple, no adenopathy, no thyromegaly, no JVD CVS/Heart: RRR, normal S1S2, pulses present bilaterally Chest/Lungs: CTA B, Symmetrical chest expansion, good air entry bilaterally GI/Abdomen: soft, NTND, good bowel sounds, no guarding or rebound /Bladder: no suprapubic tenderness, no CVA or paraspinal tenderness Extermity/Skin: no c/c/e, no obvious rash MSK: FROM x 4 Neuro: CN 2-12 grossly intact, no new focal deficits Psych: calm - Constitutional Vitals: Temp Pulse Resp BP Pulse Ox 99.3 F 95 H 16 127/78 93 03/09/19 08:09 03/09/19 08:09 03/09/19 08:09 03/09/19 08:09 03/09/19 08:09 Plan Follow up with: MIN CAZARES MD [Primary Care Provider] - 3-5 Days Prescriptions: Pantoprazole [Protonix] 40 mg PO QDAY #30 tablet
[2019-03-09 14:04] VITALS: BP 121/79
[2019-03-09 15:03] LABS: Calcium 8.3 mg/dL (8.4-10.2)
[2019-03-09] MEDS: HEPARIN SUB-Q SCH (15:29)
[2019-03-09] MEDS: ASPIRIN PO SCH (15:29)
--- NOTE | 2019-03-10 04:29 | Treadmill Report ---
THALLIUM STRESS TEST REPORT LEFT VENTRICLE: Left ventricular chamber size is within normal spread. The stress perfusion study demonstrates homogeneous uptake of the tracer in all segments. Normal apical thinning is noted. There is diaphragmatic attenuation artifact on the resting study. Gated analysis demonstrates normal left ventricular systolic function, ejection fraction of 65%. CONCLUSION: Normal myocardial perfusion study. JOB# [id number] CA/NTS
== END 2019-03-09 15:00 | disposition home or self-care (01) | DRG 391 ==
LOC: ED 21:25 → 4A 03-08 01:54
PROVIDERS: ADMIT Internal Medicine; ATTEND Internal Medicine
PROC: 5A1D70Z Performance of Urinary Filtration, Intermittent, Less than 6 Hours Per Day (ICD-10-PCS; principal; 2019-03-08)
DX: K21.9 Gastro-esophageal reflux disease without esophagitis (principal); N18.6 End stage renal disease; I12.0 Hypertensive chronic kidney disease with stage 5 chronic kidney disease or end stage renal disease; I42.8 Other cardiomyopathies; N25.81 Secondary hyperparathyroidism of renal origin; E11.22 Type 2 diabetes mellitus with diabetic chronic kidney disease; E11.40 Type 2 diabetes mellitus with diabetic neuropathy, unspecified; E87.5 Hyperkalemia; Z99.2 Dependence on renal dialysis; Z79.899 Other long term (current) drug therapy
CPT/HCPCS: 36415; 71045; 78452; 80048; 80053; 80061; 80074; 82550; 82553; 82962; 83735; 84100; 84484; 85025; 85610; 85730; 93005; 93010; 93017; 93306; 94644; G0378; A9502; J0610; J1644; J1815; J2270; J2785; J7030

== ENCOUNTER 2019-07-05 22:40 | Emergency (ER) | payer MEDICARE ==
[2019-07-06] MEDS ORDERED: XYLOCAINE TOPICAL 4% TP ONE (01:38)
[2019-07-06] MEDS ORDERED: LIDOCAINE VISCOUS 2% MM NR (02:00)
--- NOTE | 2019-07-06 02:18 | Emergency Department Report ---
HPI - General Chief Complaint: Rectal Pain Time Seen by Provider: 07/06/19 01:20 - HPI HPI: 63-year-old male presents to the emergency department with a complaint of rectal pain. The patient has some issues occasionally with constipation and says that he had some bad constipation about 2 or 3 days ago. He was able to have a bowel movement but it was quite painful. Since that time he has been having loose stools and/or diarrhea and each time that he uses the bathroom he has rectal pain. It is sharp and burning. The patient gets dialysis on Friday/Friday/Friday and says that he was given an antidiarrheal just so he could complete dialysis. He does have a history of hemorrhoids that have been banded. Patient had a colonoscopy 2 months ago in which a polyp was removed but otherwise was normal. 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 He denies any abdominal or pelvic pain, fever or back pain. He denies any rectal bleeding. ED Past Medical Hx - Past Medical History Hx Hypertension: Yes Hx Congestive Heart Failure: No Hx Diabetes: Yes (diet controlled) Hx Renal Disease: Yes (MWF) Hx Asthma: No Hx COPD: No Additional medical history: neuropathy - Surgical History Additional Surgical History: Vas-Cath left groin, colonic polyp removal. Right kidney biopsy - Social History Smoking Status: Never Smoker - Medications Home Medications: Home Medications Medication Instructions Recorded Confirmed Last Taken Type Brimonidine Tartrate 0.2% 1 drop OU DAILY 02/24/19 03/08/19 02/24/19 History Doxazosin Mesylate 8 mg PO DAILY 02/24/19 03/08/19 03/07/19 History Hemorrhoidal Cream 1 applicatio RC BID PRN 02/24/19 03/08/19 02/23/19 History Latanoprost 0.005% 1 drop OU DAILY 02/24/19 03/08/19 03/07/19 History Loperamide 2 mg PO Q6H PRN 02/24/19 03/08/19 Unknown History Methocarbamol 500 mg PO DAILY 02/24/19 03/08/19 03/07/19 History Nephro-Manny Rx Tablet 60 - 300 mg PO DAILY 02/24/19 03/08/19 03/07/19 History Oxycodone HCl 15 mg PO PRN PRN 02/24/19 03/08/19 02/23/19 History Renvela 800 mg PO DAILY 02/24/19 03/08/19 03/07/19 History Pantoprazole [Protonix] 40 mg PO QDAY #30 tablet 03/09/19 Unknown Rx ED Review of Systems ROS: Stated complaint: RECTAL PAIN Other details as noted in HPI Comment: All other systems reviewed and negative Constitutional: denies: chills, fever Eyes: denies: eye pain, vision change ENT: denies: ear pain, throat pain Respiratory: denies: cough, shortness of breath Cardiovascular: denies: chest pain, palpitations Gastrointestinal: diarrhea, other (rectal pain). denies: abdominal pain, melena, hematochezia Genitourinary: denies: dysuria, discharge Musculoskeletal: denies: back pain, arthralgia Skin: denies: rash, lesions Neurological: denies: headache, weakness Physical Exam - Physical Exam Physical Exam: GENERAL: The patient is well-developed well-nourished. HENT: Normocephalic. Atraumatic. Patient has moist mucous membranes. EYES: Extraocular motions are intact. NECK: Supple. Trachea is midline. CHEST/LUNGS: Clear to auscultation. There is no respiratory distress noted. HEART/CARDIOVASCULAR: Regular. There is no tachycardia. There is no murmur. ABDOMEN: Abdomen is soft, nontender. Patient has normal bowel sounds. There is no abdominal distention. SKIN: Skin is warm and dry. NEURO: The patient is awake, alert, and oriented. The patient is cooperative. Normal speech. MUSCULOSKELETAL: There is no tenderness or deformity. There is no evidence of acute injury. RECTAL: There is some mild tenderness to palpation of the rectum. There is a very small external hemorrhoid that is nonthrombosed at the 9 o'clock position but this is not the area of the patient's discomfort. No fluctuance or abscess seen or palpated. No gross rectal bleeding. ED Medical Decision Making - Medical Decision Making Patient presents with a few days of rectal pain after he had some constipation followed by diarrhea causing multiple bowel movements and multiple trips to the bathroom. He does have a history of hemorrhoids that been banded in the past. He also has a history of a recent colonoscopy that showed no significant process and he had a polyp removed. On examination he has some very mild tenderness to palpation of the rectum but there is no obvious abscess, anal fissure and he has a very small nonthrombosed external hemorrhoids seen, but this is not the area of the patient's discomfort. Vital signs stable throughout his ED course. He has good follow-up with gastroenterology. He was given a dose of lidocaine to help with his rectal pain here in the emergency department. We'll try to get in to see gastroenterology in the next 1-2 days and will return to the ER with any worsening of his symptoms or any acute distress. - Differential Diagnosis rectal abscess, hemorrhoid, anal fissure Critical Care Time: No Critical care attestation.: If time is entered above; I have spent that time in minutes in the direct care of this critically ill patient, excluding procedure time. ED Disposition Clinical Impression: Rectal pain Disposition: DC-01 TO HOME OR SELFCARE Is pt being admited?: No Condition: Stable Instructions: Acute Diarrhea (ED) Additional Instructions: Please follow-up with your copying machine repairer regarding your rectal pain. Return to the emergency Department with any worsening of your symptoms or any acute distress. Referrals: BANDAR VAN MD [Staff Physician] - 2-3 Days Time of Disposition: 02:18
[2019-07-06 02:28] VITALS: BP 149/83
== END 2019-07-06 02:34 | disposition home or self-care (01) ==
LOC: ED 22:40
DX: K62.89 Other specified diseases of anus and rectum (principal); K59.00 Constipation, unspecified; R19.7 Diarrhea, unspecified; I10 Essential (primary) hypertension; E11.40 Type 2 diabetes mellitus with diabetic neuropathy, unspecified; Z79.899 Other long term (current) drug therapy